=== PATIENT | male | born 1940 | race Two or more races ===

== ENCOUNTER → 2016-12-04 | Outpatient (CLI) | payer MEDICARE, BC ==
[2016-12-04] VITALS (10 sets, daily range): BP systolic 99–141; BP diastolic 41–79
[~2016-12-04] VITALS: Ht 167.6 cm; Wt 81.2 kg
[~2016-12-04] MED LIST: ALPR0.254 PO; ASPI-252 PO; COLE1TAB2 PO; CONTRAST GIVEN MC PRN; DIPHENHYDRAMINE 50 MG/ML VIAL. IVP ONE; DULO60CA44 PO; FAMOTIDINE 20 MG/2 ML VIAL IVP ONE; FENTANYL PF 100 MCG/2 ML VIAL. IV PRN; FENTANYL PF 250 MCG/5 ML VIAL. IV ONE; FENTANYL PF 250 MCG/5 ML VIAL. ONE; FOLI0.8T21 PO; FURO40TA4 PO; HEPARIN for IV BOLUS 10,000 UNIT/10 ML VIAL. ONE; HYDR-2762 PO; IODIXANOL 320 MG/ML 100 ML VIAL. IART ONE; IODIXANOL 320MG/ML 50ML VIAL. ONE; IOHEXOL 350 MG/ML 100 ML VIAL. IART ONE; LIDOCAINE 1% / SOD BICARB 8.4% 20 ML VIAL. IJ ONE; LUBI8CAP3 PO; MIDAZOLAM HCL/PF 5 MG/5 ML VIAL. IV ONE; MIDAZOLAM HCL/PF 5 MG/5 ML VIAL. ONE; PREG50CA PO; RANI150T2 PO; ROPI0.5T2 PO; SEVE800T9 PO; TEMA30CA PO; TROL35.4 TP; methylPREDNISolone SOD SUCC PF 125 MG/2 ML VIAL. IV ONE
[2016-12-04 08:08] LABS: BASO # 0.1 x10^3/uL (0.0-0.2); BASO % 1 % (0-3); EOS % 5 % (0-3); HEMATOCRIT 35.2 % (39.0-53.0); HEMOGLOBIN 11.3 g/dL (13.0-17.5); LYMPH # 1.3 x10^3/uL (1.0-4.8); LYMPH % 19 % (24-48); MEAN CORPUSCULAR HEMOGLOBIN 31 pg (25-35); MEAN CORPUSCULAR HGB CONC 32 g/dL (31-37); MEAN CORPUSCULAR VOLUME 98 fL (79-100); MONO % 14 % (0-9); NEUT % 61 % (31-73); PLATELET COUNT 173 x10^3/uL (140-400); RED CELL DISTRIBUTION WIDTH 16.4 % (11.5-14.5); WHITE BLOOD COUNT 6.8 x10^3/uL (4.0-11.0)
[2016-12-04 08:30] LABS: CALCIUM 8.2 mg/dL (8.5-10.1); GFR 9.2; POTASSIUM 4.9 mmol/L (3.5-5.1)
[2016-12-04 08:32] LABS: INR 1.2 (0.8-1.1); PROTHROMBIN TIME PATIENT 14.4 SEC (11.7-14.0)
--- NOTE | 2016-12-05 08:00 | RAD ---
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 He has right arm pain and swelling, with right chest wall venous collaterals, consistent with central venous occlusion, which was documented on an outside AV fistulogram. Right upper extremity central venogram, with attempted recanalization of central venous occlusion, has been requested by renal. Fluoroscopy time: 32.3 minutes Kerma-area Product: 70 Gycm2 Contrast material: 37 cc Visipaque 320 Anesthesia: 88 minutes moderate sedation was provided utilizing a total of 3 mg Versed and 125 mcg fentanyl, IV. The patient was appropriately monitored by a qualified independent observer throughout the time of moderate sedation. Consent: The procedure was explained in its entirety to the patient and/or the patient's designated patient access representative by a member of the treatment team. This included a discussion of risks and benefits and commonly accepted alternatives to the procedure, as well as expected consequences of no treatment at all. Discussion of risks included, but was not limited to, those that are most frequent and those that are rare, but possibly severe or life-threatening, as well as the possibility of unforeseen complications. Sterility: All elements of maximal sterile barrier technique were utilized, including cap, mask, sterile gown, sterile gloves, large sterile sheet, appropriate hand hygiene, and 2% chlorhexidine for cutaneous antisepsis. Procedure: Informed consent was obtained from the patient. He was placed supine on the angiography table. Moderate sedation was provided with IV Versed and fentanyl. Right upper extremity central venogram via AV fistula access: Preliminary ultrasound examination of right upper arm documented wide patency of his brachiocephalic AV fistula. An arterial limb site suitable for ultrasound-guided sheath placement was selected, marked, and was documented with a single hard copy ultrasound image. Right upper arm was then prepped and draped in the usual sterile fashion, utilizing all elements of maximal sterile barrier technique, as described above. Using aseptic technique, local anesthesia, and direct ultrasound guidance, a 4 [place] sheath was successfully introduced into cephalic outflow vein of the AV fistula at the level of mid humerus, with its tip directed centrally. Visipaque 320 was injected and right upper extremity venogram DSA images were obtained. Those images revealed widely patent cephalic outflow vein, including previously stented cephalic arch. 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 Note is made of prompt retrograde opacification of right axillary and basilic veins, with subsequent opacification of enlarged, serpiginous right chest wall collateral veins. The decision was made to attempt to cross the occluded central venous segment from this right upper arm access. The 4 [place] cephalic outflow vein sheath was exchanged over an Amplatz wire for a 7 [place] 45 cm long [place] sheath, which was advanced into mid right subclavian vein, utilizing fluoroscopic guidance. Several unsuccessful attempts were then made to cross the central venous occlusion, utilizing multiple guidewires and catheters. The decision was then made to attempt to cross the central venous occlusion from ultrasound-guided common femoral vein access. Superior venacavogram via right common femoral vein access: Preliminary ultrasound examination of right groin revealed wide patency of right common femoral vein. This was documented with a single hard copy ultrasound image. Right groin was then prepped and draped in the usual sterile fashion, utilizing all elements of maximal sterile barrier technique, as described above. Using aseptic technique, local anesthesia, direct ultrasound guidance, and the micropuncture system, a micropuncture sheath was successfully introduced into right common femoral vein. The micropuncture sheath was removed over an Amplatz wire. The percutaneous tract was dilated and an 8 [place] 55 cm long sheath was easily advanced superiorly under fluoroscopic guidance and was positioned within superior vena cava. Visipaque 320 was injected through the sheath and SVC gram DSA images were obtained. Those images revealed widely patent superior vena cava, followed by abrupt, rounded, complete occlusion of right innominate vein, near its expected subclavian vein junction. The decision was made to attempt to recanalize the occluded central vein segment from this right groin access. Several attempts were made to cross the short segment of chronic occlusion, from patent innominate vein into patent subclavian vein. Multiple guidewires, catheters, and guiding catheters were utilized. Unfortunately, all attempts were unsuccessful. Patient tolerated the procedures well without apparent complication. Hemostasis was achieved at the right arm AV fistula puncture site utilizing 2-0 silk in a pursestring fashion. Hemostasis was achieved at the right groin puncture site utilizing manual pressure and V-Pad. Referring self contained behavior unit teacher was contacted and was notified of unsuccessful attempted central venous recanalization. Impression: Right upper extremity central venogram was performed from ultrasound-guided right upper arm AV fistula access. Superior venacavogram/central venogram was performed from ultrasound-guided right common femoral vein approach. 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 Unfortunately, despite multiple attempts with multiple vascular sheaths, guiding catheters, angiographic catheters, and guidewires, the short segment occlusion could not be successfully crossed. Referring self contained behavior unit teacher was notified.
== END | disposition home or self-care (01) ==
LOC: INTRAD 07:09
PROVIDERS: ATTEND Internal Medicine Nephrology
DX: I82.B11 Acute embolism and thrombosis of right subclavian vein (principal); I82.290 Acute embolism and thrombosis of other thoracic veins; I10 Essential (primary) hypertension; E11.9 Type 2 diabetes mellitus without complications; K21.9 Gastro-esophageal reflux disease without esophagitis; Z86.14 Personal history of Methicillin resistant Staphylococcus aureus infection; Z90.49 Acquired absence of other specified parts of digestive tract
CPT/HCPCS: 36010; 36415; 36901; 75827; 76937; 80048; 85027; 85610; A4215; C1713; C1769; C1892; C1894; J1200; J2250; J2930; J3010; Q9967; S0028; 75820